=== PATIENT | male | born 1950 | race Caucasian/White ===

== ENCOUNTER 2017-12-11 09:24 | Inpatient (IN) | payer BC, MEDICARE ==
[~2017-12-11] VITALS: Ht 180.3 cm; Wt 98.0 kg
[~2017-12-11 09:24] MED LIST: BUPIVACAINE/PF 0.25% ONE; CEFAZOLIN 1,000 MG ONE; DEXAMETHASONE 4 MG/ML, 1ML ONE; FENTANYL PF 250 MCG/5ML ONE; LIDOCAINE-MPF 2% ,5ML ONE; LISI1TAB7 PO; LORA1TAB PO; METO100T5 PO; MIDAZOLAM 1 MG/ML, 2ML ONE; ONDANSETRON 2MG/ML, 2ML ONE; PROPOFOL 10 MG/ML, 20ML ONE
[2017-12-11] MEDS ORDERED: LIDOCAINE GEL 2%, 5ML ONE (09:32)
[2017-12-11] MEDS ORDERED: GABAPENTIN 300 MG CAPSULE PO ONE (09:36)
[2017-12-11] MEDS ORDERED: ACETAMINOPHEN 500 MG TABLET PO ONE (09:46)
[2017-12-11] MEDS ORDERED: LIDOCAINE-MPF 1%, 2ML ONE (09:52)
[2017-12-11] MEDS ORDERED: LACTATED RINGERS 1,000 ML IV SCH (10:00)
[2017-12-11] MEDS ORDERED: VANCOMYCIN 1,800 MG in SODIUM CHLORIDE 0.9% 250 ML IV ONE (10:00)
[2017-12-11] MEDS ORDERED: VANCOMYCIN PER PHARMACY MC ONE (10:00)
[2017-12-11] MEDS ORDERED: KETOROLAC 60 MG/2 ML ONE (10:24)
[2017-12-11] MEDS ORDERED: TRANEXAMIC ACID 100 MG/ML, 10ML ONE ×2 (10:24)
[2017-12-11] MEDS ORDERED: VANCOMYCIN 1,000 MG ONE (10:25)
[2017-12-11] MEDS ORDERED: ROPIvacaine/PF 0.2%, 20 ML ONE (10:25)
[2017-12-11] MEDS ORDERED: SODIUM CHLORIDE 0.9% 100 ML ONE (10:25)
[2017-12-11] MEDS ORDERED: EPINEPHRINE 1 MG/ML, 1ML ONE (10:25)
[2017-12-11] MEDS: NS + 20MEQ KCL 1,000 ML IV SCH ×2 (10:34→23:04)
[2017-12-11] MEDS ORDERED: GENTAMICIN 80 MG/2 ML ONE (10:35)
[2017-12-11] MEDS ORDERED: ROCURONIUM 10 MG/ML,10ML ONE (10:35)
[2017-12-11] MEDS ORDERED: SUCCINYLCHOLINE 20 MG/ML, 10ML ONE (10:35)
[2017-12-11] MEDS ORDERED: ONDANSETRON 4 MG TABLET PO PRN (11:00)
[2017-12-11] MEDS ORDERED: DIPHENHYDRAMINE 25 MG CAPSULE PO PRN (11:00)
[2017-12-11] MEDS ORDERED: SCOPOLAMINE PATCH, 1.5MG PATCH.TD72 TD ONE (11:00)
[2017-12-11] MEDS ORDERED: BISACODYL 10 MG SUPP PR PRN (11:00)
[2017-12-11] MEDS ORDERED: MAGNESIUM HYDROXIDE 8%, 30ML UDC PO PRN (11:00)
[2017-12-11] MEDS ORDERED: ZOLPIDEM 5MG TABLET PO PRN (11:00)
[2017-12-11] MEDS ORDERED: HYDROcodone/APAP 5/325 TABLET PO PRN (11:00)
[2017-12-11] MEDS ORDERED: CEFAZOLIN PMX 2GM/50ML 50 ML IVPB SCH (11:00)
[2017-12-11] MEDS ORDERED: HYDROmorphone 1 MG/ML, 1ML IV PRN (11:00)
[2017-12-11] MEDS ORDERED: ONDANSETRON 2MG/ML, 2ML IV PRN (11:00)
[2017-12-11] MEDS ORDERED: ACETAMINOPHEN 650 MG/20.3 ML UDC PO PRN (11:00)
[2017-12-11] MEDS ORDERED: SENNA/DOCUSATE TABLET PO PRN (11:00)
[2017-12-11] MEDS ORDERED: ALBUTEROL/IPRATROPIUM 2.5MG/0.5MG, 3 ML NPPB PRN (11:30)
[2017-12-11] MEDS ORDERED: LORazepam 2 MG/ML, 1ML IVPush PRN (11:30)
[2017-12-11] MEDS ORDERED: OXYcodone 5 MG/5 ML ORAL.SOL UDC PO PRN (11:30)
[2017-12-11] MEDS ORDERED: MEPERIDINE/PF 25MG/0.5ML IVPush PRN (11:30)
[2017-12-11] MEDS ORDERED: hydrALAzine 20 MG/ML, 1ML IV PRN (11:30)
[2017-12-11] MEDS ORDERED: ONDANSETRON 2MG/ML, 2ML IVPush PRN (11:30)
[2017-12-11] MEDS ORDERED: METOPROLOL 1 MG/ML, 5ML IV PRN (11:30)
[2017-12-11] MEDS ORDERED: HYDROcodone/APAP 7.5-325MG/15ML UDC PO PRN (11:30)
[2017-12-11] MEDS ORDERED: DIAZEPAM 5 MG/ML, 2ML IVPush PRN (11:30)
[2017-12-11] MEDS ORDERED: PROMETHAZINE 25 MG/ML, 1ML IV PRN (11:30)
[2017-12-11] MEDS ORDERED: morphine SULFATE 10 MG/ML, 1ML ONE ×2 (12:51→13:26)
[2017-12-11] MEDS: FENTANYL PF 100 MCG/2ML IV PRN ×4 (12:52→13:41)
[2017-12-11] MEDS ORDERED: FENTANYL PF 100 MCG/2ML ONE ×2 (12:52→13:15)
[2017-12-11] MEDS ORDERED: OXYcodone 5 MG/5 ML ORAL.SOL UDC ONE (12:52)
[2017-12-11] MEDS: morphine SULFATE 10 MG/ML, 1ML IV PRN ×3 (12:56→13:41)
[2017-12-11] MEDS ORDERED: MIDAZOLAM 1 MG/ML, 2ML ONE (13:14)
[2017-12-11] MEDS: MIDAZOLAM 1 MG/ML, 2ML IV PRN ×2 (13:17→13:41)
[2017-12-11] MEDS ORDERED: hydrALAzine 20 MG/ML, 1ML ONE (13:33)
[2017-12-11] MEDS: OXYcodone IR 5MG TABLET PO PRN ×2 (16:42→22:25)
[2017-12-11] MEDS: ASPIRIN 81 MG TABLET EC PO SCH (16:42)
[2017-12-11 20:27] VITALS: BP 133/84
[2017-12-11] MEDS: DOCUSATE 100 MG CAPSULE PO SCH (22:01)
[2017-12-11] MEDS ORDERED: VANCOMYCIN PMX 1GM/200ML 200 ML IV ONE (22:15)
[2017-12-12] VITALS: BP 139/87
[2017-12-12] MEDS: OXYcodone IR 5MG TABLET PO PRN ×2 (02:24→06:33)
[2017-12-12 04:45] VITALS: BP 129/84
[2017-12-12] MEDS: ASPIRIN 81 MG TABLET EC PO SCH (05:39)
[2017-12-12] MEDS ORDERED: DEXAMETHASONE 4 MG/ML, 1ML IVPush SCH (06:00)
[2017-12-12] MEDS: DOCUSATE 100 MG CAPSULE PO SCH (07:45)
[2017-12-12 08:23] VITALS: BP 161/79
[2017-12-12] MEDS ORDERED: OXYC5TAB3 PO (08:51)
[2017-12-12] MEDS ORDERED: TRAM50TA2 PO (08:52)
[2017-12-12] MEDS ORDERED: DIAZ5TAB PO (08:53)
[2017-12-12] MEDS ORDERED: ONDA4TAB10 PO (08:53)
[2017-12-12] MEDS ORDERED: MELO7.5T31 PO (08:53)
[2017-12-12] MEDS: NS + 20MEQ KCL 1,000 ML IV SCH (10:38)
== END 2017-12-12 11:05 | disposition home or self-care (01) | DRG 468 ==
LOC: ORIP 09:24 → 4NOR 14:45
PROVIDERS: ADMIT Orthopaedic Surgery; ATTEND Orthopaedic Surgery
PROC: 0SRC0J9 Replacement of Right Knee Joint with Synthetic Substitute, Cemented, Open Approach (ICD-10-PCS; 2017-12-11)
PROC: 0SPC0JZ Removal of Synthetic Substitute from Right Knee Joint, Open Approach (ICD-10-PCS; principal; 2017-12-11 12:00)
DX: T84.032A Mechanical loosening of internal right knee prosthetic joint, initial encounter (principal); M17.12 Unilateral primary osteoarthritis, left knee; Y83.8 Other surgical procedures as the cause of abnormal reaction of the patient, or of later complication, without mention of misadventure at the time of the procedure; Y92.89 Other specified places as the place of occurrence of the external cause; M25.461 Effusion, right knee
CPT/HCPCS: 36415; 85014; 85018; 86850; 86900; 86923; 87070; 87075; 87205; C1713; J0171; J0690; J1100; J1885; J2250; J2405; J2704; J2795; J3010; J3370; J3490; C1762; C1776; J0330; J0360; J1580; J2270; J7050; J7120